=== PATIENT | male | born 1975 | race Caucasian/White ===

== ENCOUNTER 2016-07-14 18:46 | Inpatient (IN) | payer BC, OTHER ==
[~2016-07-14 18:46] MED LIST: ACETAMINOPHEN 1,000 MG/100 ML IV ONE; BUPIVACA/EPI 0.25% PF 30ML NERVEBLOCK ONE; DEXAMETHASONE 4 MG/ML VIAL IV ONE; DILAUDID 1 MG/ML AMP IV ONE; FENTANYL 100 MCG/2 ML AMP IV ONE; ONDANSETRON 4 MG VIAL IV PUSH ONE
[2016-07-14] MEDS ORDERED: OPTIRAY 350 100 ML VIAL HMH IV ONE (18:47)
[2016-07-14] MEDS ORDERED: SODIUM CHLORIDE 0.9% 1,000 ML ONE (19:59)
[2016-07-14] MEDS ORDERED: DILAUDID 1 MG/ML AMP ONE (20:18)
[2016-07-14] MEDS ORDERED: ONDANSETRON 4 MG VIAL ONE (20:19)
[2016-07-14] MEDS ORDERED: LACT RINGERS 1,000 ML IV ONE (23:29)
[2016-07-15] VITALS (21 sets, daily range): BP systolic 30–157; RESP 9–18; TEMP 97.3–98.4
[2016-07-15] MEDS ORDERED: MORPHINE 4 MG/ML SYR IV PRN ×2 (00:40→00:55)
[2016-07-15] MEDS ORDERED: SALINE FLUSH 10 ML FLUSH PRN (00:40)
[2016-07-15] MEDS ORDERED: ONDANSETRON 4 MG VIAL IV PUSH PRN (00:40)
[2016-07-15] MEDS ORDERED: ONDANSETRON 4 MG VIAL IV PRN (00:55)
[2016-07-15] MEDS ORDERED: MEPERIDINE 25 MG/ML IV PRN (00:55)
[2016-07-15] MEDS ORDERED: OXYCODONE 5 MG TAB PO PRN (00:55)
[2016-07-15] MEDS ORDERED: MORPHINE 2 MG/ML SYR IV PRN (00:55)
[2016-07-15] MEDS ORDERED: DILAUDID 1 MG/ML AMP IV PRN (00:55)
[2016-07-15] MEDS: D5-1/2-NS W/KCL 20MEQ/L 1,000 ML IV SCH (01:58)
[2016-07-15] MEDS: SODIUM CHLORIDE 0.9% FLUSH BAG 500 ML IV SCH ×2 (04:35→23:52)
[2016-07-15] MEDS: SALINE FLUSH 10 ML FLUSH SCH ×2 (08:00→21:01)
[2016-07-15] MEDS: METRONIDAZOLE 500MG/100ML 100 ML IV SCH ×3 (08:16→23:52)
[2016-07-15] MEDS: FAMOTIDINE 20 MG INJ IV SCH ×2 (08:17→21:01)
[2016-07-15] MEDS: DICYCLOMINE 20 MG TAB PO SCH (08:17)
[2016-07-15] MEDS: LEVOFLOXACIN 500 MG/100 ML 100 ML IV SCH (09:30)
[2016-07-15] MEDS: TAMSULOSIN 0.4 MG CAP PO SCH (21:01)
[2016-07-16] MEDS: D5-1/2-NS W/KCL 20MEQ/L 1,000 ML IV SCH (00:05)
[2016-07-16 03:41] VITALS: BP_SYST 120; RESP 16; TEMP 98.1
[2016-07-16] MEDS: MORPHINE 2 MG/ML SYR IV PRN ×3 (06:20→19:17)
[2016-07-16 07:34] VITALS: BP_SYST 122; RESP 16; TEMP 98.1
[2016-07-16] MEDS: FAMOTIDINE 20 MG INJ IV SCH ×2 (08:52→22:12)
[2016-07-16] MEDS: SALINE FLUSH 10 ML FLUSH SCH ×2 (08:52→22:13)
[2016-07-16] MEDS: METRONIDAZOLE 500MG/100ML 100 ML IV SCH ×2 (08:53→15:01)
[2016-07-16] MEDS: DICYCLOMINE 20 MG TAB PO SCH (08:53)
[2016-07-16] MEDS: LEVOFLOXACIN 500 MG/100 ML 100 ML IV SCH (09:43)
[2016-07-16 15:06] VITALS: BP_SYST 110; RESP 16; TEMP 100.3
[2016-07-16 17:43] VITALS: TEMP 99.8
[2016-07-16 19:43] VITALS: BP_SYST 112; RESP 16; TEMP 98.4
[2016-07-16] MEDS: TAMSULOSIN 0.4 MG CAP PO SCH (22:13)
[2016-07-16 23:01] VITALS: BP_SYST 126; RESP 16; TEMP 98.1
[2016-07-17] MEDS: METRONIDAZOLE 500MG/100ML 100 ML IV SCH ×2 (00:14→08:18)
[2016-07-17] MEDS: D5-1/2-NS W/KCL 20MEQ/L 1,000 ML IV SCH (00:15)
[2016-07-17 02:58] VITALS: BP_SYST 127; RESP 16; TEMP 98.9
[2016-07-17] MEDS: SODIUM CHLORIDE 0.9% FLUSH BAG 500 ML IV SCH (03:16)
[2016-07-17] MEDS: MORPHINE 2 MG/ML SYR IV PRN ×2 (03:16→09:29)
[2016-07-17 07:42] VITALS: BP_SYST 124; RESP 16; TEMP 98.7
[2016-07-17] MEDS: SALINE FLUSH 10 ML FLUSH SCH (08:18)
[2016-07-17] MEDS: FAMOTIDINE 20 MG INJ IV SCH (08:18)
[2016-07-17] MEDS: LEVOFLOXACIN 500 MG/100 ML 100 ML IV SCH (09:02)
[2016-07-17] MEDS: DICYCLOMINE 20 MG TAB PO SCH (09:02)
[2016-07-17 11:11] VITALS: BP_SYST 110; RESP 16; TEMP 97.9
[2016-07-17 13:41] VITALS: BP_SYST 110; RESP 16; TEMP 97.9
== END 2016-07-17 14:44 | disposition home health service (06) | DRG 346 ==
LOC: ENRESERVDT → ENRESERV → ENRESERVTM → ER 18:46 → EMR 07-15 00:38 → 5THW 07-15 01:40
PROVIDERS: ADMIT Surgery; ATTEND Surgery
PROC: 0D9P0ZZ Drainage of Rectum, Open Approach (ICD-10-PCS; principal; 2016-07-14 11:47)
DX: K61.1 Rectal abscess (principal)
CPT/HCPCS: 36415; 72193; 80053; 83605; 85025; 85652; 86141; 87040; 87071; 87075; 87077; 87186; 96361; 96374; 96375